=== PATIENT | female | born 1995 | race Caucasian/White ===

== ENCOUNTER 2017-10-20 18:58 | Emergency (ER) | payer BC, OTHER ==
[~2017-10-20] VITALS: Ht 160 cm; Wt 90.7 kg
[2017-10-20 19:00] VITALS: BP_SYST 113
[2017-10-20 23:55] VITALS: BP_SYST 108
== END 2017-10-20 23:55 | disposition home or self-care (01) ==
LOC: SED 18:58
DX: J20.9 Acute bronchitis, unspecified (principal); J45.909 Unspecified asthma, uncomplicated; G43.909 Migraine, unspecified, not intractable, without status migrainosus; Z88.2 Allergy status to sulfonamides; Z88.1 Allergy status to other antibiotic agents
CPT/HCPCS: 36415; 71045; 81025; 86710; 93005; 99285

== ENCOUNTER 2018-11-14 05:45 | Day surgery (SDC) | payer BC, OTHER ==
[~2018-11-14] VITALS: Ht 162.6 cm; Wt 89.4 kg
[2018-11-14] MEDS ORDERED: KETOROLAC TROMETHAMINE 30 MG VIAL IVP ONE ×2 (07:40→08:15)
[2018-11-14] MEDS ORDERED: OXYTOCIN 10 UNIT/ML VIAL IV ONE (07:40)
[2018-11-14] MEDS ORDERED: ONDANSETRON HCL 4 MG/2 ML VIAL IVP ONE (07:40)
[2018-11-14] MEDS ORDERED: fentaNYL CITRATE/PF 100 MCG/2 ML AMP IVP ONE (07:40)
[2018-11-14] MEDS ORDERED: PROPOFOL 200MG/ 20ML VIAL (DIPRIVAN) IV ONE (07:40)
[2018-11-14] MEDS ORDERED: ROCURONIUM BROMIDE 10 MG/ML (ZEMURON) IV ONE (07:40)
[2018-11-14] MEDS ORDERED: SEVOFLURANE 15 MIN GAS INH ONE (07:40)
[2018-11-14] MEDS ORDERED: CEFAZOLIN 1 GM IVPB PREMIX 50 ML IV ONE (07:40)
[2018-11-14] MEDS ORDERED: MIDAZOLAM HCL 5 MG/5 ML VIAL IVP ONE (07:40)
[2018-11-14] MEDS ORDERED: WATER FOR IRRIGATION,STERILE 1,000 ML IRRIG.SOLN IR ONE (07:40)
[2018-11-14] MEDS ORDERED: LR 1,000 ML IV SCH (08:13)
[2018-11-14] MEDS ORDERED: ONDANSETRON HCL 4 MG/2 ML VIAL IVP PRN (08:15)
[2018-11-14] MEDS ORDERED: METOCLOPRAMIDE HCL 10 MG/2 ML VIAL IVP PRN (08:15)
[2018-11-14] MEDS ORDERED: OXYCODONE/ACETAMINOPHEN 5-325 TABLET PO PRN (08:15)
[2018-11-14] MEDS ORDERED: HYDROcodone/ACETAMIN 5-325 MG TAB (NORCO/ VICODIN) PO PRN (08:15)
[2018-11-14] MEDS ORDERED: MORPHINE 4 MG/ML INJ. SYRINGE IVP PRN ×3 (08:15)
[2018-11-14 09:30] VITALS: BP_SYST 92
== END 2018-11-14 10:22 | disposition home or self-care (01) ==
LOC: SDS 05:45 → SMU 05:45 → SDS 10:22
PROVIDERS: ATTEND Specialist
DX: O03.9 Complete or unspecified spontaneous abortion without complication (principal); Z88.2 Allergy status to sulfonamides; J45.909 Unspecified asthma, uncomplicated; E66.01 Morbid (severe) obesity due to excess calories
CPT/HCPCS: 59812; 88305; J7120; J0690; J1885; J2250; J2405; J2590; J2704; J3010